=== PATIENT | female | born 1960 | race Caucasian/White ===

== ENCOUNTER 2021-03-03 08:42 | Day surgery (SDC) | payer BC ==
[~2021-03-03 08:42] MED LIST: Lactated Ringers 1,000 ML IV SCH
--- NOTE | 2021-03-03 10:10 | PCM.PREANE ---
Preanesthetic Assessment - Anesthesia/Transfusion/Family Hx Anesthesia History: Prior Anesthesia Without Reaction Family History of Anesthesia Reaction: No Transfusion History: No Prior Transfusion(s) - Review of Systems General: No Symptoms Pulmonary: No Symptoms Cardiovascular: No Symptoms Gastrointestinal: No Symptoms Neurological: No Symptoms Other: Reports: None - Physical Assessment NPO Status Date: 03/03/21 NPO Status Time: 00:01 Vital Signs: Last Vital Signs Temp 97.3 F 03/03/21 09:54 Pulse 78 03/03/21 09:54 Resp 16 03/03/21 09:54 BP 117/69 03/03/21 09:54 Pulse Ox 96 03/03/21 09:54 Height: 5 ft 7 in Weight: 170 lb ASA Class: 3 Mental Status: Alert & Oriented x3 Airway Class: Mallampati = 2 Dentition: Reports: Normal Dentition, Broken Tooth/Teeth, Missing Tooth/Teeth ROM/Head Extension: Limited/Partial Lungs: Clear to Auscultation, Normal Respiratory Effort Cardiovascular: Regular Rate, Regular Rhythm - Lab Values: Laboratory Last Values SARS-CoV-2 RNA (THEA) NEGATIVE (NEGATIVE) 03/03/21 08:50 - Allergies Allergies/Adverse Reactions: Allergies Allergy/AdvReac Type Severity Reaction Status Date / Time No Known Allergies Allergy Verified 03/03/21 09:58 - Anesthesia Plan Pre-Op Medication Ordered: None - Acknowledgements Anesthesia Type Planned: General Anesthesia Pt an Appropriate Candidate for the Planned Anesthesia: Yes Alternatives and Risks of Anesthesia Discussed w Pt/Guardian: Yes Pt/Guardian Understands and Agrees with Anesthesia Plan: Yes Additional Comments: npo after mn L sided brain AVM repair 2006 complicated by seizures and leg arm weakness last seizure 15 years ago R arm and leg weakness tob 1 ppd etoh none L sided breast ca dec 2020 s/p XRT par no questions bmi 26 PreAnesthesia Questionnaire HEENT History: Reports: Other (See Below) Other HEENT History: readers Cardiovascular History: Reports: Blood Clots/VTE/DVT, Hypertension Other Cardiovascular History: DVT right leg following brain surgery Respiratory History: Reports: Other (See Below) Other Respiratory History: "asthma as a teenager" Gastrointestinal History: Reports: GERD Genitourinary History: Reports: None 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: Musculoskeletal History: Reports: Fracture Other Musculoskeletal History: hx fx wrist and right leg Neurological History: Reports: CVA, Seizure Other Neuro History: 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, last seizure in "06" Psychiatric History: Reports: Anxiety Endocrine/Metabolic History: Reports: None Hematologic History: Reports: None Immunologic History: Reports: None Oncologic (Cancer) History: Reports: Breast Dermatologic History: Reports: None - Past Surgical History Head Surgeries/Procedures: Reports: Craniotomy HEENT Surgical History: Reports: None Cardiovascular Surgical History: Reports: None Respiratory Surgical History: Reports: None GI Surgical History: Reports: Cholecystectomy, Colonoscopy Female Surgical History: Reports: Breast Biopsy, Other (See Below) Other Female Surgeries/Procedures: breast lumpectomy with lymph node bx Endocrine Surgical History: Reports: None Neurological Surgical History: Reports: Other (See Below) Other Neurological Surgeries/Procedures: brain surgery in "06" Musculoskeletal Surgical History: Reports: ORIF, Other (See Below) Other Musculoskeletal Surgeries/Procedures:: ORIF rt leg fx, trigger finger release-left hand Oncologic Surgical History: Reports: Biopsy of Breast Dermatological Surgical History: Reports: None - SUBSTANCE USE Tobacco Use Status *Q: Current Every Day Tobacco User Tobacco Use Within Last Twelve Months: Cigarettes - HOME MEDS Home Medications: Home Meds Aspirin [Adult Aspirin Regimen] 81 mg PO DAILY 02/27/21 [History] Cholecalciferol (Vitamin D3) [Vitamin D3] 2,000 units PO BEDTIME 02/27/21 [History] Elderberry Fruit and Flower [Black Elderberry 575 mg Cap] 1,250 mg PO DAILY 02/27/21 [History] Ferrous Sulfate [Iron] 325 mg PO DAILY 02/27/21 [History] Magnesium Citrate 250 mg PO BEDTIME 02/27/21 [History] Multivitamin 1 tab PO BEDTIME 02/27/21 [History] Multivitamin with Minerals [Hair, Skin and Nails] 1 tab PO BEDTIME 02/27/21 [History] [place]-3/DHA/Epa/Fish Oil [Fish Oil 1,000 mg Softgel] 1,000 mg PO BEDTIME 02/27/21 [History] Phenytoin Sodium Extended [Dilantin] 350 mg PO BEDTIME 02/27/21 [History] Tolterodine Tartrate 2 mg PO DAILY 02/27/21 [History] atorvaSTATin Calcium [Atorvastatin Calcium] 20 mg PO DAILY 02/27/21 [History] - CURRENT (IN HOUSE) MEDS Current Meds: Current Medications Lactated Ringer's (Ringers, Lactated) 1,000 mls @ 125 mls/hr IV ASDIRECTED [facility] [place] Last Admin: 03/03/21 09:57 Dose: 125 mls/hr Documented by:
--- NOTE | 2021-03-03 10:40 | PCM.PREANE ---
Preanesthetic Assessment - Anesthesia/Transfusion/Family Hx Anesthesia History: Prior Anesthesia Without Reaction Family History of Anesthesia Reaction: No Transfusion History: No Prior Transfusion(s) - Review of Systems General: No Symptoms Pulmonary: No Symptoms Cardiovascular: No Symptoms Gastrointestinal: No Symptoms Neurological: No Symptoms Other: Reports: None - Physical Assessment NPO Status Date: 03/03/21 NPO Status Time: 00:01 Vital Signs: Last Vital Signs Temp 97.3 F 03/03/21 09:54 Pulse 78 03/03/21 09:54 Resp 16 03/03/21 09:54 BP 117/69 03/03/21 09:54 Pulse Ox 96 03/03/21 09:54 Height: 5 ft 7 in Weight: 170 lb ASA Class: 3 Mental Status: Alert & Oriented x3 Airway Class: Mallampati = 2 Dentition: Reports: Normal Dentition, Broken Tooth/Teeth, Missing Tooth/Teeth ROM/Head Extension: Limited/Partial Lungs: Clear to Auscultation, Normal Respiratory Effort Cardiovascular: Regular Rate, Regular Rhythm - Lab Values: Laboratory Last Values SARS-CoV-2 RNA (THEA) NEGATIVE (NEGATIVE) 03/03/21 08:50 - Allergies Allergies/Adverse Reactions: Allergies Allergy/AdvReac Type Severity Reaction Status Date / Time No Known Allergies Allergy Verified 03/03/21 09:58 - Acknowledgements Anesthesia Type Planned: General Anesthesia Pt an Appropriate Candidate for the Planned Anesthesia: Yes Alternatives and Risks of Anesthesia Discussed w Pt/Guardian: Yes Pt/Guardian Understands and Agrees with Anesthesia Plan: Yes PreAnesthesia Questionnaire HEENT History: Reports: Other (See Below) Other HEENT History: readers Cardiovascular History: Reports: Blood Clots/VTE/DVT, Hypertension Other Cardiovascular History: DVT right leg following brain surgery Respiratory History: Reports: Other (See Below) Other Respiratory History: "asthma as a teenager" Gastrointestinal History: Reports: GERD Genitourinary History: Reports: None 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: Musculoskeletal History: Reports: Fracture Other Musculoskeletal History: hx fx wrist and right leg Neurological History: Reports: CVA, Seizure Other Neuro History: 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, last seizure in "06" Psychiatric History: Reports: Anxiety Endocrine/Metabolic History: Reports: None Hematologic History: Reports: None Immunologic History: Reports: None Oncologic (Cancer) History: Reports: Breast Dermatologic History: Reports: None - Past Surgical History Head Surgeries/Procedures: Reports: Craniotomy HEENT Surgical History: Reports: None Cardiovascular Surgical History: Reports: None Respiratory Surgical History: Reports: None GI Surgical History: Reports: Cholecystectomy, Colonoscopy Female Surgical History: Reports: Breast Biopsy, Other (See Below) Other Female Surgeries/Procedures: breast lumpectomy with lymph node bx Endocrine Surgical History: Reports: None Neurological Surgical History: Reports: Other (See Below) Other Neurological Surgeries/Procedures: brain surgery in "06" Musculoskeletal Surgical History: Reports: ORIF, Other (See Below) Other Musculoskeletal Surgeries/Procedures:: ORIF rt leg fx, trigger finger release-left hand Oncologic Surgical History: Reports: Biopsy of Breast Dermatological Surgical History: Reports: None - SUBSTANCE USE Tobacco Use Status *Q: Current Every Day Tobacco User Tobacco Use Within Last Twelve Months: Cigarettes - HOME MEDS Home Medications: Home Meds Aspirin [Adult Aspirin Regimen] 81 mg PO DAILY 02/27/21 [History] Cholecalciferol (Vitamin D3) [Vitamin D3] 2,000 units PO BEDTIME 02/27/21 [History] Elderberry Fruit and Flower [Black Elderberry 575 mg Cap] 1,250 mg PO DAILY 02/27/21 [History] Ferrous Sulfate [Iron] 325 mg PO DAILY 02/27/21 [History] Magnesium Citrate 250 mg PO BEDTIME 02/27/21 [History] Multivitamin 1 tab PO BEDTIME 02/27/21 [History] Multivitamin with Minerals [Hair, Skin and Nails] 1 tab PO BEDTIME 02/27/21 [History] [place]-3/DHA/Epa/Fish Oil [Fish Oil 1,000 mg Softgel] 1,000 mg PO BEDTIME 02/27/21 [History] Phenytoin Sodium Extended [Dilantin] 350 mg PO BEDTIME 02/27/21 [History] Tolterodine Tartrate 2 mg PO DAILY 02/27/21 [History] atorvaSTATin Calcium [Atorvastatin Calcium] 20 mg PO DAILY 02/27/21 [History] - CURRENT (IN HOUSE) MEDS Current Meds: Current Medications Lactated Ringer's (Ringers, Lactated) 1,000 mls @ 125 mls/hr IV ASDIRECTED [facility] Last Admin: 03/03/21 09:57 Dose: 125 mls/hr Documented by:
[2021-03-03] MEDS ORDERED: Propofol 200 MG/20 ML SDV ONE (10:45)
[2021-03-03] MEDS ORDERED: Lidocaine 2% 5 ML SDV ONE (10:48)
[2021-03-03] MEDS ORDERED: Lactated Ringers 1,000 ML IV SCH (11:15)
--- NOTE | 2021-03-03 11:18 | PCM.OPNOTE ---
- General Post-Op/Procedure Note Date of Surgery/Procedure: 03/03/21 Operative Procedure(s): Esophagogastroduodenoscopy with gastric and esophageal biopsies Pre Op Diagnosis: Progressive gastroesophageal reflux disease Post-Op Diagnosis: Moderate acute and chronic gastritis. Hiatal hernia with esophagitis. Anesthesia Technique: MAC (ASA III) Primary Surgeon: Santos Arias Condition: Good Free Text/Narrative:: DICTATION [id number] CPT CODE 82799
--- NOTE | 2021-03-03 11:42 | PCM48HPAN ---
Post Anesthesia Note - EVALUATION WITHIN 48HRS OF ANESTHETIC Vital Signs in Normal Range: Yes Patient Participated in Evaluation: Yes Respiratory Function Stable: Yes Airway Patent: Yes Cardiovascular Function Stable: Yes Hydration Status Stable: Yes Pain Control Satisfactory: Yes Nausea and Vomiting Control Satisfactory: Yes Mental Status Recovered: Yes Vital Signs: Last Vital Signs Temp 97.3 F 03/03/21 09:54 Pulse 72 03/03/21 11:28 Resp 11 L 03/03/21 11:28 BP 111/63 03/03/21 11:28 Pulse Ox 96 03/03/21 11:28
--- NOTE | 2021-03-03 11:45 | PCM.POSTAN ---
POST ANESTHESIA ASSESSMENT - MENTAL STATUS Mental Status: Alert (no anesthetic problems), Oriented - VITAL SIGNS Vital Signs: Last Vital Signs Temp 97.0 F 03/03/21 11:35 Pulse 72 03/03/21 11:35 Resp 16 03/03/21 11:35 BP 116/70 03/03/21 11:35 Pulse Ox 96 03/03/21 11:35 - RESPIRATORY Respiratory Status: Respiratory Rate WNL, Airway Patent, O2 Saturation Stable - CARDIOVASCULAR CV Status: Pulse Rate WNL, Blood Pressure Stable - GASTROINTESTINAL GI Status: No Symptoms - POST OP HYDRATION Hydration Status: Adequate & Stable
--- NOTE | 2021-03-03 17:19 | OR ---
SURGEON: Santos Arias M.D. DATE OF PROCEDURE: 03/03/2021 OPERATION PERFORMED: Esophagogastroduodenoscopy with gastric and esophageal biopsies. PRIMARY SURGEON: Santos Arias MD ANESTHESIA: MAC. ASA CLASSIFICATION: III. PREOPERATIVE DIAGNOSIS: Progressive dysphagia. POSTOPERATIVE DIAGNOSES: 1. Moderate chronic gastritis. 2. Distal esophagitis with hiatal hernia. DESCRIPTION OF PROCEDURE: The patient was taken to the endoscopy room and positioned on the endoscopy table in the supine position. Time-out was called for appropriate identification of the patient and procedure. Monitored anesthesia care was provided. The bite- block was placed between the patient's teeth. The gastroscope was inserted through the bite-block and advanced without difficulty through the esophagus and stomach into the duodenum where examination was now carried out in a retrograde fashion. The duodenum showed no acute inflammatory changes or ulcerations. The stomach did show [id number] gastritis. Several biopsies of the antrum were obtained to look for the presence of Helicobacter pylori. The gastroscope was then retroflexed to visualize the proximal stomach. The patient does have what appears to be a [id number]- sized hiatal hernia. The gastroscope was then straightened and withdrawn carefully visualizing the greater and lesser curvatures. No acute ulcerations were noted. No polyps were encountered in the stomach. The scope was then withdrawn through the hiatal hernia. The squamocolumnar junction appears to be at approximately 36 to 37 cm from the incisors and separate biopsies of this area were obtained as it does appear that she has some esophagitis. No stricture was noted. The mid and proximal esophagus appeared quite healthy and showed good contractility. The vocal cords were briefly visualized as the scope was withdrawn and noted to move symmetrically. The gastroscope was then removed with the patient having tolerated the procedure well. She was taken to recovery room in stable condition. GARETH / NARESH /[id number]
== END 2021-03-03 11:51 | disposition home or self-care (01) ==
LOC: MW.SDS 08:42
PROVIDERS: ATTEND Surgery
DX: K29.50 Unspecified chronic gastritis without bleeding (principal); K21.00 Gastro-esophageal reflux disease with esophagitis, without bleeding; K44.9 Diaphragmatic hernia without obstruction or gangrene; I10 Essential (primary) hypertension; F17.210 Nicotine dependence, cigarettes, uncomplicated; Z01.812 Encounter for preprocedural laboratory examination; Z20.822 Contact with and (suspected) exposure to COVID-19; Z79.899 Other long term (current) drug therapy; Z86.69 Personal history of other diseases of the nervous system and sense organs; Z85.3 Personal history of malignant neoplasm of breast; Z86.73 Personal history of transient ischemic attack (TIA), and cerebral infarction without residual deficits
CPT/HCPCS: 43239; 87635; J2704; J7120; 00731; 88305; 88312; U0002